=== PATIENT | female | born 1965 | race Caucasian/White ===

== ENCOUNTER → 2018-08-10 | Outpatient (CLI) | payer BC ==
[2018-08-10 18:12] LABS: Basophils % (A) 1 %; Eosinophils # (A) 0.1 k/uL (0-0.7); Eosinophils % (A) 2 %; HCT 43.5 % (34.0-46.0); HGB 13.4 gm/dL (11.4-16.0); Lymphocytes # (A) 1.9 k/uL (1.0-4.8); Lymphocytes % (A) 36 %; MCH 29.7 pg (25.0-35.0); MCHC 30.8 g/dL (31.0-37.0); MCV 96.4 fL (80.0-100.0); Monocytes # (A) 0.3 k/uL (0-1.0); Monocytes % (A) 6 %; Neutrophils % (A) 55 %; Platelet Count 348 k/uL (150-450); RBC 4.51 m/uL (3.80-5.40); RDW 12.9 % (11.5-15.5); WBC 5.4 k/uL (3.8-10.6)
[2018-08-10 18:26] LABS: ALT 28 U/L (9-52); AST 25 U/L (14-36); Albumin 4.3 g/dL (3.5-5.0); Alkaline Phosphatase 73 U/L (38-126); Anion Gap 9 mmol/L; Blood Urea Nitrogen 15 mg/dL (7-17); Calcium 9.6 mg/dL (8.4-10.2); Carbon Dioxide 27 mmol/L (22-30); Chloride 105 mmol/L (98-107); Glucose 86 mg/dL (74-99); Potassium 4.6 mmol/L (3.5-5.1); Sodium 141 mmol/L (137-145); Total Bilirubin 0.4 mg/dL (0.2-1.3); Total Protein 7.2 g/dL (6.3-8.2)
[2018-08-10 18:27] LABS: Total Eosinophil Count 108 #EOS/uL (150-300)
== END | disposition home or self-care (01) ==
LOC: LABWHC1 17:23
PROVIDERS: ATTEND Internal Medicine Clinical Cardiac Electrophysiology
DX: R00.2 Palpitations (principal); I10 Essential (primary) hypertension
CPT/HCPCS: 36415; 80053; 84443; 85008; 85025

== ENCOUNTER 2018-08-16 07:49 | Day surgery (SDC) | payer BC ==
[2018-08-15 12:12] VITALS: BMI 24.2
[~2018-08-16 07:49] MED LIST: SODIUM CHLORIDE 0.9% 1,000 ML IV SCH
[2018-08-16 08:10] VITALS: TEMP 99.2
[2018-08-16 09:49] VITALS: BP 168/98; PULSE 75; RESP 16
--- NOTE | 2018-08-16 17:52 | P.PCN ---
Preoperative Diagnosis: Diagnosis Recurrent dizzy spells weakness presyncope and palpitations Twelve-lead ECG shows sinus rhythm normal MD narrow QRS normal ST segments normal QT interval Baseline heart rate 80 beats a minute the supine position Tilt table test per protocol Baseline blood pressure 169/88 mmHg Baseline heart rate 89 beats a minute patient was tilted upright at an angle of 70 per protocol there was about 20- 30 mm drop in blood pressure to 137/94 mmHg, drop in systolic blood pressure associated with nausea and dizziness But this settled down and her blood pressure thereafter remained between 150 260 mmHg and even higher diastolics were also elevated she complained of nausea increasing symptoms and could not stand any further issues very dizzy Impression Hypertensive response noted No evidence for any significant orthostatic intolerance on current medications. She is currently on propranolol and there was no significant rise in her heart rate in the first 15 minutes of the tilt table test Blood pressure remained elevated she is currently on Florinef Suggest Reduced dose of Florinef to 0.5 mg by mouth daily Reassessment in a month regarding the need for Aldomet and the need for any Florinef at all based upon her blood pressure response This time she is presenting once again with hypertension/POTS
== END 2018-08-16 10:28 | disposition home or self-care (01) ==
LOC: CATHEP 07:49
PROVIDERS: ATTEND Internal Medicine Clinical Cardiac Electrophysiology
DX: I95.1 Orthostatic hypotension (principal); G90.9 Disorder of the autonomic nervous system, unspecified; I10 Essential (primary) hypertension; E78.5 Hyperlipidemia, unspecified; Z79.890 Hormone replacement therapy; Z79.52 Long term (current) use of systemic steroids; Z79.899 Other long term (current) drug therapy
CPT/HCPCS: 93660

== ENCOUNTER → 2018-11-29 | Outpatient (CLI) | payer BC ==
[2018-11-29 15:59] VITALS: BP 106/74; PULSE 79; TEMP 98.1; BMI 25.6
--- NOTE | 2018-11-29 16:49 | P.HPOB ---
History of Present Illness H&P Date: 11/29/18 Chief Complaint: The patient is here for her routine gynecologic exam and mammogram. This is a 53-year-old G2 PII within LMP of November 2016. The patient denies any vaginal bleeding for 2 years. She has had hot flashes since she was diagnosed with postural orthostatic tachycardia syndrome at age 39. Hot flashes remain about the same. She is otherwise without complaints. Review of Systems The patient has lost 15 pounds over the last year. She is done this with a healthy diet. She denies respiratory, cardiac, or G.I. problems. Past Medical History Past Medical History: Asthma, Thyroid Disorder Additional Past Medical History / Comment(s): celiac disease, seasonal allergies , IBS related to postural orthostatic tachycardia syndrome (POTS), kidney stones , migraines. 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 History of Any Multi-Drug Resistant Organisms: None Reported Past Surgical History: Section (x1), Orthopedic Surgery, Tonsillectomy Additional Past Surgical History / Comment(s): arthroscopic left knee, rectal abscess & hemorrhoids removed. Colonoscopy with upper endoscopy 2012. Past Anesthesia/Blood Transfusion Reactions: No Reported Reaction Past Psychological History: No Psychological Hx Reported Smoking Status: Never smoker Past Alcohol Use History: None Reported Past Drug Use History: None Reported Additional History: She has been since 1993 and is disabled. - Past Family History Father Family Medical History: Diabetes Mellitus, Deep Vein Thrombosis (DVT), Hypertension Additional Family Medical History / Comment(s): Paternal aunt had breast cancer. Mother Family Medical History: Dementia Medications and Allergies Home Medications Medication Instructions Recorded Confirmed Type ALPRAZolam [Xanax] 0.5 tab PO BID 08/15/18 11/29/18 History Albuterol Sulfate [Proair Hfa] 1 - 2 puff INHALATION Q6HR PRN 08/15/18 11/29/18 History Atorvastatin [Lipitor] 20 mg PO HS 08/15/18 11/29/18 History Butalb/Asprin/Caff 50-325-40Mg 1 - 2 cap PO Q4HR PRN 08/15/18 11/29/18 History [Fiorinal 50-325-40 MG] Diphenox-Atrop 2.5-0.025 mg 2 tab PO QID PRN 08/15/18 11/29/18 History [Lomotil] Ferrous Sulfate [Feosol] 325 mg PO DAILY 08/15/18 11/29/18 History Folic Acid 1 mg PO DAILY 08/15/18 11/29/18 History HYDROcodone/APAP 7.5-325MG [[place] 1 tab PO Q6HR PRN 08/15/18 11/29/18 History 7.5-325] Levothyroxine Sodium [Tirosint] 50 mcg PO HS 08/15/18 11/29/18 History Montelukast [Singulair] 10 mg PO DAILY 08/15/18 11/29/18 History Ondansetron [Zofran] 4 mg PO Q8HR PRN 08/15/18 11/29/18 History Polyethylene Glycol 3350 [Miralax] 17 gm PO BID 08/15/18 11/29/18 History Potassium Chloride [Klor-Con 20] 20 meq PO 1800 08/15/18 11/29/18 History Propranolol HCl [Inderal LA] 80 mg PO QAM 08/15/18 11/29/18 History Propranolol [Inderal] 20 mg PO DIRECTED PRN 08/15/18 11/29/18 History Zolpidem [Ambien] 10 mg PO HS PRN 08/15/18 11/29/18 History Methyldopa/Hydrochlorothiazide 1 each PO DAILY 11/29/18 11/29/18 History [Methyldopa-Hctz 250-15 mg Tab] Prochlorperazine [Compazine] 5 mg PO Q8HR 11/29/18 11/29/18 History Allergies Allergy/AdvReac Type Severity Reaction Status Date / Time gluten AdvReac Unknown Verified 11/29/18 15:48 Exam Vital Signs Temp Pulse BP 11/29/18 15:55 98.1 F 79 106/74 Intake and Output 11/29/18 11/29/18 11/29/18 06:59 14:59 22:59 Other: Weight 69.853 kg Height 5'5", weight 154 pounds, BMI 25.6. This is a well-developed well-nourished white female who is alert and oriented times 3 in no acute distress. HEENT: Within normal limits. NECK: Supple without mass or thyromegaly. CHEST AND LUNGS: Clear to auscultation. HEART: Regular rate and rhythm. BREASTS: Are without mass or discharge. AXILLARY EXAM: Negative for adenopathy. BACK: Negative for CVA tenderness. ABDOMEN: Soft, nontender, without palpable masses. PELVIC EXAM: Normal external genitalia. Cervix and vagina appear normal with minimal atrophy. There is no unusual discharge. There is no evidence of prolapse. The uterus is midposition, nongravid size and nontender. There are no palpable adnexal masses or tenderness. RECTAL EXAM: rectovaginal exam is negative for mass or tenderness and is negative for occult blood. EXTREMITIES: Nontender. IMPRESSION: 1. 53-year-old postmenopausal female with normal gynecologic exam. 2. Multiple medical problems. PLAN: 1. Pap smear was performed. 2. Self breast awareness was discussed with the patient. 3. Screening mammogram will be done today. 4. Osteoporosis prevention was discussed. I have stressed the importance of adequate calcium, vitamin D and regular exercise. Recommended amounts of calcium and vitamin D were also discussed. We will plan on doing bone density testing at age 56. 5. She will return in one year.
--- NOTE | 2018-12-03 10:14 | MM ---
Reason for exam: screening (asymptomatic). Last mammogram was performed 1 year and 2 months ago. History: Patient is postmenopausal and had first child at age 32. Family history of breast cancer in paternal aunt at age 75. Took hormonal contraceptives for 25 years beginning at age 24. MG 3D Screening Mammo W/Cad Bilateral CC and MLO view(s) were taken. Prior study comparison: September 14, 2017, bilateral MG screening mammo w CAD. July 27, 2016, left breast MG work up mamm w CAD LT. The breast tissue is heterogeneously dense. This may lower the sensitivity of mammography. No significant changes when compared with prior studies. ASSESSMENT: Benign, BI-RAD 2 RECOMMENDATION: Routine screening mammogram of both breasts in 1 year.
== END ==
LOC: WWCWWP 15:38
PROVIDERS: ATTEND Obstetrics & Gynecology
DX: Z12.31 Encounter for screening mammogram for malignant neoplasm of breast (principal)
CPT/HCPCS: 77063; 77067

== ENCOUNTER → 2019-10-11 | Outpatient (CLI) | payer BC ==
[2019-10-11 12:14] VITALS: BP 123/82; PULSE 63; RESP 16; TEMP 98.7
--- NOTE | 2019-10-11 13:51 | P.HPOB ---
History of Present Illness H&P Date: 10/11/19 Chief Complaint: The patient is here for her routine gynecologic exam. This is a 54-year-old with an LMP of November 2016. The patient denies any postmenopausal bleeding. She has been having worsening vasomotor symptoms at night which are very bothersome to her. She states they have gotten much worse since about February of this year. She has hot flashes and night sweats at night which can leave her and her pajamas "drenched". She has difficulty sleeping at night and typically only sleeps 2 or 3 hours per night. Hot flashes are usually not very bad during the day and can also feel cold during the day. She has also noticed significant worsening of her anxiety since February. She has lost weight during this time. Her doctors have made medication adjustments because of some of her symptoms without much improvement. She has been taken off of her thyroid medication and will be seeing a new muck miner. She has also noticed brittle hair. She has been put back on Zoloft for some of her symptoms and this has been increased to 100 mg per day. She has been taken off of Aldomet which she had previously taken for fluctuating blood pressures. Review of Systems She has lost about 27 pounds during the past year. Respiratory: She has occasional shortness of breath. Cardiac: She has occasional tachycardia which is related to her pots syndrome. GI she has had a decreased appetite and has noticed a metallic taste in her mouth and she attributes her weight loss to these problems. She had has been undergoing workup for GI problems including some difficulty swallowing. Past Medical History Past Medical History: Asthma, Thyroid Disorder Additional Past Medical History / Comment(s): celiac disease, seasonal allergies, IBS related to postural orthostatic tachycardia syndrome (POTS), kidney stones, migraines. History of hypothyroidism delayed return to hyperthyroidism. 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 History of Any Multi-Drug Resistant Organisms: None Reported Past Surgical History: Section, Orthopedic Surgery, Tonsillectomy Additional Past Surgical History / Comment(s): arthroscopic left knee, rectal abscess & hemorrhoids removed. Colonoscopy with upper endoscopy- last 2018. Past Anesthesia/Blood Transfusion Reactions: No Reported Reaction Past Psychological History: No Psychological Hx Reported Smoking Status: Never smoker Past Alcohol Use History: None Reported Past Drug Use History: None Reported Additional History: She has been since 1993 and is disabled. - Past Family History Father Family Medical History: Diabetes Mellitus, Deep Vein Thrombosis (DVT), Hypertension Additional Family Medical History / Comment(s): Paternal aunt had breast cancer. Mother Family Medical History: Dementia Medications and Allergies Home Medications Medication Instructions Recorded Confirmed Type ALPRAZolam [Xanax] 0.5 tab PO QID 08/15/18 10/11/19 History Albuterol Sulfate [Proair Hfa] 1 - 2 puff INHALATION Q6HR PRN 08/15/18 10/11/19 History Butalb/Asprin/Caff 50-325-40Mg 1 - 2 cap PO Q4HR PRN 08/15/18 10/11/19 History [Fiorinal 50-325-40 MG] Diphenox-Atrop 2.5-0.025 mg 2 tab PO QID PRN 08/15/18 10/11/19 History [Lomotil] Ferrous Sulfate [Feosol] 325 mg PO DAILY 08/15/18 10/11/19 History Folic Acid 1 mg PO DAILY 08/15/18 10/11/19 History HYDROcodone/APAP 7.5-325MG [[place] 1 tab PO Q6HR PRN 08/15/18 10/11/19 History 7.5-325] Montelukast [Singulair] 10 mg PO DAILY 08/15/18 10/11/19 History Ondansetron [Zofran] 4 mg PO Q8HR PRN 08/15/18 10/11/19 History Polyethylene Glycol 3350 [Miralax] 17 gm PO DAILY 08/15/18 10/11/19 History Propranolol HCl [Inderal LA] 80 mg PO QAM 08/15/18 10/11/19 History Propranolol [Inderal] 20 mg PO DIRECTED PRN 08/15/18 10/11/19 History Zolpidem [Ambien] 10 mg PO HS PRN 08/15/18 10/11/19 History Prochlorperazine [Compazine] 5 mg PO Q8HR 11/29/18 10/11/19 History Hyoscyamine Sulfate [Levsin-Sl] 0.125 mg SL DAILY PRN 10/11/19 10/11/19 History Mometasone Furoate [Nasonex Nasal 2 spr EA NOSTRIL DAILY 10/11/19 10/11/19 History [place]] Ondansetron [Zofran ODT] 4 mg PO Q12HR 10/11/19 10/11/19 History Allergies Allergy/AdvReac Type Severity Reaction Status Date / Time gluten AdvReac Unknown Verified 10/11/19 12:14 Exam Vital Signs Temp Pulse Resp BP Pulse Ox 10/11/19 12:08 98.7 F 63 16 123/82 100 Intake and Output 10/10/19 10/11/19 10/11/19 22:59 06:59 14:59 Other: Weight 57.606 kg Height 5 feet 5 inches, weight 127 pounds, BMI 21.1. This is a well-developed well-nourished white female who is alert and oriented times 3 in no acute distress. HEENT: Within normal limits. NECK: Supple without mass or thyromegaly. CHEST AND LUNGS: Clear to auscultation. HEART: Regular rate and rhythm. BREASTS: Are without mass or discharge. AXILLARY EXAM: Negative for adenopathy. BACK: Negative for CVA tenderness. ABDOMEN: Soft, nontender, without palpable masses. PELVIC EXAM: Normal external genitalia with minimal atrophy. Cervix and vagina appear normal with minimal atrophy. There is no unusual discharge. There is no evidence of prolapse. The uterus is midposition, nongravid size and nontender. There are no palpable adnexal masses or tenderness. RECTAL EXAM: Rectovaginal exam is negative for mass or tenderness and is negative for occult blood. EXTREMITIES: Nontender. IMPRESSION: 1. 54-year-old menopausal female with normal gynecologic exam. 2. Worsening vasomotor symptoms especially at night which include night sweats and resulting insomnia. This probably is related to her menopausal change, but can also be partially related to her other medical problems including thyroid disorder and POTS. Differential diagnosis will also include anxiety, medication side effect and hyperthyroidism. PLAN: 1. Pap smear was deferred since she had a normal one on 11/29/2018. 2. Self breast awareness was discussed with the patient. 3. Mammogram will be due in 2019. 4. We have had a long discussion regarding her symptoms as well as menopausal symptoms and possible treatments. We have discussed options such as conservative measures which would include drinking icewater when symptoms arise and dressing in layers. Other options discussed include hormone replacement therapy, nonhormonal medications and supplements. Nonhormonal medications such as clonidine and SSRI medications were discussed. She is already taking SSRI medications in the form of Zoloft. She will keep in mind the option of clonidine if she is needed to be put on blood pressure medication. We have had a long discussion regarding hormone replacement therapy including the WHI study findings. We discussed possible increased risk for heart attack, stroke, breast cancer, and blood clots. After a long discussion, she would like to have a trial of continuous HRT. We will try to use the lowest effective dose for the shortest amount of time. She will also consult with her primary care physician and electrician third to make sure that they are not opposed to see such treatment in her situation. 5. Estradiol 0.5 mg by mouth daily and micronized progesterone 100 mg by mouth daily will be prescribed. The per prescription will be sent electronically to [facility] pharmacy in [place]. She understands she should she should not fill the prescription if her PCP and electrician third are opposed to this HRT usage. 6. She will return in one month for reevaluation and also call if she has any questions or problems. 7. She will also return in 1 year and as needed. 8. The ACOG FAQ (047) handout on menopausal years was given to the patient.
== END ==
LOC: WWCWWP 11:56
PROVIDERS: ATTEND Obstetrics & Gynecology
DX: Z53.9 Procedure and treatment not carried out, unspecified reason (principal)

== ENCOUNTER → 2019-11-01 | Outpatient (CLI) | payer BC ==
[2019-11-01 10:10] VITALS: BP 113/68; PULSE 67; RESP 16; TEMP 98.9
--- NOTE | 2019-11-01 10:31 | P.PN ---
Progress Note - Text Progress Note Date: 11/01/19 Chief Complaint: recheck on low-dose HRT for vasomotor symptoms HPI:This is a 54-year-old with an LMP of November 2016. The patient was started on low-dose HRT for worsening vasomotor symptoms at night which causes problems with inability to sleep. She states that her night sweats and hot flashes at night were severe and she would be "drenched"at times. After starting HRT she has noticed an improvement with the hot flashes and night sweats at night and is able to sleep much better. She still has sweats at night and thinks she would like to increase her HRT dose to see if this helps even more. She denies any side effects and denies any postmenopausal bleeding. ROS:she denies any side effects or problems. she has gained about 5 pounds over the past month. PE: Blood pressure:113/68, Height:5 feet 5 inches, Weight:132 pounds, Temperature:98.9, Pulse:67, pulse oximeter 100%. This is a well developed, well nourished, White female who is alert and orientedx3, in no acute distress. Impression: 1. 54-year-old menopausal female with slight improvement of vasomotor symptoms w ith low-dose HRT. 2. improvement in sleeping, but she still does have night some sweats Plan: 1. we will increase the Estrace dose to 1 mg daily from 0.5 mg daily. She will continue to take the micronized progesterone 100 mg daily. The electronic prescription will be sent to [facility] pharmacy in [place]. 2. she will call she has any problems including postmenopausal bleeding, side effects or signs of internal blood clots. 3. If she is doing well, she'll return in approximately 11 months for her annual well woman examination. We have discussed how we will plan on weaning down or off of HRT every year. Time spent with the patient: 15 minutes
== END ==
LOC: WWCWWP 09:59
PROVIDERS: ATTEND Obstetrics & Gynecology
DX: Z53.9 Procedure and treatment not carried out, unspecified reason (principal)

== ENCOUNTER → 2020-12-17 | Outpatient (CLI) | payer BC ==
[2020-12-17 15:27] VITALS: BP 94/66; PULSE 68; RESP 18; TEMP 98.5
--- NOTE | 2020-12-17 16:19 | P.HPOB ---
History of Present Illness H&P Date: 12/17/20 Chief Complaint: The patient is here for her routine gynecologic exam and ma mmogram. This is a 55-year-old with an LMP of 2017. The patient states she is doing well with low-dose HRT. She was taking this mostly for bad night sweats and this has improved. She would like to keep her HRT dose the same at this time. She denies any postmenopausal bleeding. Review of Systems She is gained about 17 pounds over the last year. This was after losing 27 pounds the prior year. She attributes though weight changes to her POTS syndrome and feels she is at a good weight at this time. She denies respiratory or cardiac problems. GI: She has been having issues with alternating constipation and diarrhea which she also attributes to her POTS syndrome. She sees Dr. Hart for this. Past Medical History Past Medical History: Asthma, Thyroid Disorder Additional Past Medical History / Comment(s): celiac disease, seasonal allergies, IBS related to postural orthostatic tachycardia syndrome (POTS), kidney stones, migraines. History of hypothyroidism delayed return to hyperthyroidism. 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 History of Any Multi-Drug Resistant Organisms: None Reported Past Surgical History: Section, Orthopedic Surgery, Tonsillectomy Additional Past Surgical History / Comment(s): arthroscopic left knee, rectal abscess & hemorrhoids removed. Colonoscopy with upper endoscopy- last 2018. Past Anesthesia/Blood Transfusion Reactions: No Reported Reaction Past Psychological History: No Psychological Hx Reported Smoking Status: Never smoker Past Alcohol Use History: None Reported Past Drug Use History: None Reported Additional History: She has been since 1993 and is disabled. - Past Family History Father Family Medical History: Diabetes Mellitus, Deep Vein Thrombosis (DVT), Hypertension Additional Family Medical History / Comment(s): Paternal aunt had breast cancer. Mother Family Medical History: Dementia Medications and Allergies Home Medications Medication Instructions Recorded Confirmed Type Albuterol Sulfate [Proair Hfa] 1 - 2 puff INHALATION Q6HR PRN 08/15/18 12/17/20 History Butalb/Asprin/Caff 50-325-40Mg 1 - 2 cap PO Q4HR PRN 08/15/18 12/17/20 History [Fiorinal 50-325-40 MG] Diphenox-Atrop 2.5-0.025 mg 2 tab PO QID PRN 08/15/18 12/17/20 History [Lomotil] Ferrous Sulfate [Feosol] 325 mg PO DAILY 08/15/18 12/17/20 History Folic Acid 1 mg PO DAILY 08/15/18 12/17/20 History HYDROcodone/APAP 7.5-325MG [[place] 1 tab PO Q6HR PRN 08/15/18 12/17/20 History 7.5-325] Montelukast [Singulair] 10 mg PO DAILY 08/15/18 12/17/20 History Ondansetron [Zofran] 4 mg PO Q8HR PRN 08/15/18 12/17/20 History Propranolol HCl [Inderal LA] 80 mg PO QAM 08/15/18 12/17/20 History Propranolol [Inderal] 20 mg PO DIRECTED PRN 08/15/18 12/17/20 History Zolpidem [Ambien] 10 mg PO HS PRN 08/15/18 12/17/20 History polyethylene glycoL 3350 [Miralax] 17 gm PO DAILY 08/15/18 12/17/20 History Prochlorperazine [Compazine] 5 mg PO Q8HR 11/29/18 12/17/20 History Mometasone Furoate [Nasonex Nasal 2 spr EA NOSTRIL DAILY 10/11/19 12/17/20 History [place]] Ondansetron [Zofran ODT] 4 mg PO Q12HR 10/11/19 12/17/20 History Progesterone, Micronized 100 mg PO DAILY #90 capsule 11/01/19 12/17/20 Rx [Progesterone] Dicyclomine [Bentyl] 20 mg PO QID 12/17/20 12/17/20 History clonazePAM [KlonoPIN] 0.5 mg PO BID 12/17/20 12/17/20 History estradioL [Estrace] 0.5 mg PO DAILY 12/17/20 12/17/20 History Allergies Allergy/AdvReac Type Severity Reaction Status Date / Time gluten AdvReac Unknown Verified 12/17/20 15:15 Exam Vital Signs Temp Pulse Resp BP Pulse Ox 12/17/20 15:22 98.5 F 68 18 94/66 100 Intake and Output 12/17/20 12/17/20 12/17/20 06:59 14:59 22:59 Other: Weight 65.317 kg Height 5 feet 6 inches, weight 144 pounds, BMI 23.2. This is a well-developed well-nourished white female who is alert and oriented times 3 in no acute distress. HEENT: Within normal limits. NECK: Supple without mass or thyromegaly. CHEST AND LUNGS: Clear to auscultation. HEART: Regular rate and rhythm. BREASTS: Are without mass or discharge. AXILLARY EXAM: Negative for adenopathy. BACK: Negative for CVA tenderness. ABDOMEN: Soft, nontender, without palpable masses. PELVIC EXAM: Normal external genitalia with mild atrophy. Cervix and vagina appear normal mild atrophy. There is no unusual discharge. There is no evidence of prolapse. The uterus is midposition, nongravid size and nontender. There are no palpable adnexal masses or tenderness. RECTAL EXAM: Rectovaginal exam is negative for mass or tenderness and is negative for occult blood. EXTREMITIES: Nontender. IMPRESSION: 1. 55-year-old menopausal female with normal gynecologic exam doing well on low-dose HRT. PLAN: 1. Pap smear cotest was performed. 2. Self breast awareness was discussed with the patient. 3. Screening mammogram will be done today. 4. We will continue low-dose HRT. We have discussed trying to wean off of HRT. She would like to not change anything at this time since she has been doing well with this. We will consider trying to wean off next year. The electronic prescription for estradiol 0.5 mg daily and micronized progesterone 100 mg daily will be sent to [facility] pharmacy in [place]. 5. Osteoporosis prevention was discussed. I have stressed the importance of adequate calcium, vitamin D and regular exercise. Recommended amounts of calcium and vitamin D were also discussed. 6. She was advised to return in one year for her annual well woman exam.
--- NOTE | 2020-12-20 13:20 | MM ---
Reason for exam: screening (asymptomatic). Last mammogram was performed 2 years and 1 month ago. History: Patient is postmenopausal and had first child at age 32. Family history of breast cancer in paternal aunt at age 75. Took hormonal contraceptives for 25 years beginning at age 24. Physical Findings: A clinical breast exam by your physician is recommended on an annual basis and results should be correlated with mammographic findings. MG 3D Screening Mammo W/Cad Bilateral CC and MLO view(s) were taken. Prior study comparison: November 29, 2018, bilateral MG 3d screening mammo w/cad. September 14, 2017, bilateral MG screening mammo w CAD. The breast tissue is heterogeneously dense. This may lower the sensitivity of mammography. No significant changes when compared with prior studies. ASSESSMENT: Benign, BI-RAD 2 RECOMMENDATION: Routine screening mammogram of both breasts in 1 year.
== END | disposition home or self-care (01) ==
LOC: WWCWWP 15:07
PROVIDERS: ATTEND Obstetrics & Gynecology
DX: Z12.31 Encounter for screening mammogram for malignant neoplasm of breast (principal)
CPT/HCPCS: 77063; 77067

== ENCOUNTER → 2021-08-26 | Outpatient (CLI) | payer BC ==
[2021-08-26 13:43] VITALS: BP 99/76; PULSE 70; RESP 12; TEMP 97.9
--- NOTE | 2021-08-26 14:35 | P.PN ---
Progress Note - Text Progress Note Date: 08/26/21 Chief Complaint: Light vaginal bleeding for 5 days. HPI: This is a 56-year-old with an LMP of 2017. The patient has been on combination HRT since 2018. She has been taking estradiol 1 mg daily and micronized progesterone 100 mg daily. She did not try weaning from these doses since I saw her in December. The bleeding started 5 days ago and was less than a period. She has had very slight cramping as well. The bleeding has gradually gotten rater associate and is minimal now. She denies any trauma or painful intercourse. She was last sexually active 1-2 weeks ago. She denies any supplements for menopausal symptoms. She currently is using the HRT for night sweats which were problematic before HRT. She denies missing any HRT pills. She states that the progesterone pills she has been taking recently have seemed softer than in the past. ROS: She denies respiratory, cardiac, or GI problems. She denies any urinary symptoms. PE: Blood pressure: 99/67, Height: 5 feet 5 inches, Weight: 141 pounds, Temperature: 97.9, Pulse: 70. This is a well developed, well nourished, why to female who is alert and orientedx3, in no acute distress. Abdomen: Soft, nontender, no palpable masses. Pelvic exam: Normal external genitalia. Cervix and vagina revealed mild atrophy without lesions. There is a scant amount of blood in the back of the vagina. There is no active bleeding. There is no cervical motion tenderness. The cervix does not appear inflamed. The uterus is mid positioned, nongravid size, and nontender. There are no palpable adnexal masses or tenderness. Impression: 1. 56-year-old menopausal female who is on continuous HRT with 5 days of light vaginal bleeding. Plan: 1. The patient will be scheduled for a pelvic ultrasound to check the endometrial thickness. This has been scheduled for 09/02/2021 and 1 PM. If there is endometrial thickening, we will plan on doing some type of sampling of the endometrium, either endometrial biopsy or referral for D&C and H/S. 2. I have recommended that she immediately try to wean down on the estradiol by going to a half milligram per day. She will continue to take the micronized progesterone. She is hesitant to change her HRT at this time, but I have explained to her that this may decrease the chances of additional postmenopausal bleeding. I have also explained to her that they may be situations where she will be asked to stop the HRT altogether such as the situation where we find cancerous or precancerous changes. Time spent with the patient: 25 minutes
== END ==
LOC: WWCWWP 13:22
PROVIDERS: ATTEND Obstetrics & Gynecology
DX: N93.9 Abnormal uterine and vaginal bleeding, unspecified (principal); Z91.018 Allergy to other foods

== ENCOUNTER → 2021-09-02 | Outpatient (CLI) | payer BC ==
--- NOTE | 2021-09-02 15:56 | US ---
EXAMINATION TYPE: US pelvic complete DATE OF EXAM: 09/02/2021 COMPARISON: NONE CLINICAL HISTORY: 56-year-old female PMB N95.0. Post Menopausal bleeding, TECHNIQUE: Transabdominal sonographic images of the pelvis were acquired. Transvaginal sonographic i mages were medically necessary to better assess the following anatomy: Ovaries and retroverted Uterus Date of LMP: 4 years ago FINDINGS: EXAM MEASUREMENTS: Uterus: 6.1 x 5.4 x 3.1 cm Endometrial Stripe: 0.5 cm Right Ovary: 1.8 x 1.4 x 0.9 cm Left Ovary: 2.2 x 0.8 x 1.4 cm 1. Uterus: Retroverted 2. Endometrium: wnl 3. Right Ovary: Unremarkable 4. Left Ovary: Unremarkable 5. Bilateral Adnexa: no mass or fluid collections seen 6. Posterior cul-de-sac: Trace cul-de-sac free fluid. 6 mm cervical nabothian cyst noted. IMPRESSION: 1. Retroverted uterus. 2. Borderline thickness of the endometrial stripe at 5 mm for a female with postmenopausal bleeding. No discrete mass is seen. Continued follow-up recommended to ensure stability or decreasing thickness . 3. Trace cul-de-sac free fluid.
--- NOTE | 2021-09-03 14:21 | P.PN ---
Progress Note - Text Progress Note Date: 09/03/21 OUTPATIENT FOLLOW-UP NOTE TEST(S)/RESULTS: Pelvic ultrasound done on 09/02/2021 shows an endometrial thickness of 5 mm. The ultrasound was otherwise unremarkable. No uterine fibroids were noted. METHOD OF NOTIFICATION: Patient was notified by phone. PATIENT COMMENTS: The patient has decreased her estradiol dose to 0.5 mg daily by taking half of her 1 mg tablet daily. She states she is no longer having any vaginal bleeding. DIAGNOSIS: Small postmenopausal bleeding on HRT with endometrial thickness of 5 mm DISCUSSION: I feel reassured that the initial thickness is not significantly thickened. I have recommended that she continue taking the estradiol dose of 0.5 mg daily. She will continue taking progesterone 100 mg daily. The electronic prescription for the new estradiol dose will be sent to [facility] pharmacy in [place]. She was instructed to call or make an appointment if she has r ecurrent vaginal bleeding, or if her menopausal symptoms are becoming very bad. If she has recurrent bleeding, we will plan on sampling of the endometrial tissue. PLAN: As above. She will return for her well woman examination in December 2021 or as needed.
== END | disposition home or self-care (01) ==
LOC: RADUSWWP 12:51
PROVIDERS: ATTEND Obstetrics & Gynecology
DX: N85.4 Malposition of uterus (principal)
CPT/HCPCS: 76830; 76856

== ENCOUNTER → 2022-03-24 | Outpatient (CLI) | payer BC ==
[2022-03-24 14:19] VITALS: BP 107/71; PULSE 59; RESP 17; TEMP 98.2
--- NOTE | 2022-03-24 15:01 | P.HPOB ---
History of Present Illness H&P Date: 03/24/22 Chief Complaint: The patient is here for her routine gynecologic exam and ma mmogram. This is a 57-year-old with an LMP of 2016. The patient is doing well with the lower dose of HRT which includes estradiol 0.5 mg daily with 100 mg of micronized progesterone daily. She denies any postmenopausal bleeding on this dose. The HRT dose was changed after she had a small amount of postmenopausal bleeding in August 2021. Ultrasound showed an endometrial thickness of 5 mm at that time. Review of Systems Weight has been stable. She denies respiratory or cardiac problems. GI: Intermittent constipation and diarrhea consistent with her IBS. Past Medical History Past Medical History: Asthma, Thyroid Disorder Additional Past Medical History / Comment(s): celiac disease, seasonal allergies, IBS related to postural orthostatic tachycardia syndrome (POTS), kidney stones, migraines. History of hypothyroidism delayed return to hyperthyroidism. 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 History of Any Multi-Drug Resistant Organisms: None Reported Past Surgical History: Section, Orthopedic Surgery, Tonsillectomy Additional Past Surgical History / Comment(s): arthroscopic left knee, rectal abscess & hemorrhoids removed. Colonoscopy with upper endoscopy- last 2018(next after 5y). Past Anesthesia/Blood Transfusion Reactions: No Reported Reaction Past Psychological History: No Psychological Hx Reported Smoking Status: Never smoker Past Alcohol Use History: Rare (3 per year) Past Drug Use History: None Reported Additional History: She has been since 1993 and is disabled. - Past Family History Father Family Medical History: Diabetes Mellitus, Deep Vein Thrombosis (DVT), Hypertension Additional Family Medical History / Comment(s): Paternal aunt had breast cancer. Mother Family Medical History: Dementia Medications and Allergies Home Medications Medication Instructions Recorded Confirmed Type Albuterol Sulfate [Proair Hfa] 1 - 2 puff INHALATION Q6HR PRN 08/15/18 03/24/22 History Butalb/Asprin/Caff 50-325-40Mg 1 - 2 cap PO Q4HR PRN 08/15/18 03/24/22 History [Fiorinal 50-325-40 MG] Diphenox-Atrop 2.5-0.025 mg 2 tab PO QID PRN 08/15/18 03/24/22 History [Lomotil] Folic Acid 1 mg PO DAILY 08/15/18 03/24/22 History HYDROcodone/APAP 7.5-325MG [[place] 1 tab PO Q6HR PRN 08/15/18 03/24/22 History 7.5-325] Montelukast [Singulair] 10 mg PO DAILY 08/15/18 03/24/22 History Ondansetron [Zofran] 4 mg PO Q8HR PRN 08/15/18 03/24/22 History Propranolol HCl [Inderal LA] 80 mg PO QAM 08/15/18 03/24/22 History Propranolol [Inderal] 20 mg PO DIRECTED PRN 08/15/18 03/24/22 History Zolpidem [Ambien] 10 mg PO HS 08/15/18 03/24/22 History polyethylene glycoL 3350 [Miralax] 17 gm PO DAILY 08/15/18 03/24/22 History Prochlorperazine [Compazine] 5 mg PO Q8HR 11/29/18 03/24/22 History Mometasone Furoate [Nasonex Nasal 2 spr EA NOSTRIL DAILY 10/11/19 03/24/22 History [place]] Dicyclomine [Bentyl] 20 mg PO QID 12/17/20 03/24/22 History Progesterone, Micronized 100 mg PO DAILY #90 capsule 12/17/20 03/24/22 Rx [Progesterone] clonazePAM [KlonoPIN] 0.5 mg PO BID 12/17/20 03/24/22 History Atorvastatin Calcium [Lipitor] 20 mg PO DAILY 08/26/21 03/24/22 History Sertraline HCl [Zoloft] 100 mg PO DAILY 08/26/21 03/24/22 History estradioL [Estrace] 0.5 mg PO DAILY #90 tablet 09/03/21 03/24/22 Rx traZODone HCL [TraZODone HCl] 50 mg PO DAILY 03/24/22 03/24/22 History Allergies Allergy/AdvReac Type Severity Reaction Status Date / Time gluten AdvReac Unknown Verified 03/24/22 14:12 Exam Vital Signs Temp Pulse Resp BP Pulse Ox 03/24/22 14:17 98.2 F 59 L 17 107/71 98 Intake and Output 03/23/22 03/24/22 03/24/22 22:59 06:59 14:59 Other: Weight 65.771 kg Height 5 feet 5 inches, weight 145 pounds, BMI 24.1. This is a well-developed well-nourished white female who is alert and oriented times 3 in no acute distress. HEENT: Within normal limits. NECK: Supple without mass or thyromegaly. CHEST AND LUNGS: Clear to auscultation. HEART: Regular rate and rhythm. BREASTS: Are without mass or discharge. AXILLARY EXAM: Negative for adenopathy. BACK: Negative for CVA tenderness. ABDOMEN: Soft, nontender, without palpable masses. PELVIC EXAM: Normal external genitalia with minimal atrophy. Cervix and vagina appear normal and minimal atrophy. There is no unusual discharge. There is no evidence of prolapse. The uterus is midposition, nongravid size and nontender. There are no palpable adnexal masses or tenderness. RECTAL EXAM: Rectovaginal exam is negative for mass or tenderness and is negative for occult blood. EXTREMITIES: Nontender. IMPRESSION: 1. 57-year-old menopausal female doing well on low-dose HRT. PLAN: 1. Pap smear was deferred since she had a negative Pap smear cotest on 12/17/2020. 2. Self breast awareness was discussed with the patient. We have also discussed symptoms associated with inflammatory breast cancer. 3. Screening mammogram will be done today. 4. Continue HRT consisting of estradiol 0.5 mg daily and micronized progesterone 100 mg daily. The electronic prescription will be sent to [facility] pharmacy in [place]. I have recommended that she try to wean off of HRT by decreasing the estrogen amount by taking half of the estradiol tablet daily. If she is having significant menopausal symptoms, she will go back onto the half milligram daily. 5. Osteoporosis prevention was discussed. I have stressed the importance of adequate calcium, vitamin D and regular exercise. Recommended amounts of calcium and vitamin D were also discussed. 6. She has completed her Covid vaccination series and did receive a booster. 7. She was advised to return in one year for her annual well woman exam.
--- NOTE | 2022-03-25 13:38 | MM ---
Reason for exam: screening (asymptomatic). Last mammogram was performed 1 year and 3 months ago. History: Patient is postmenopausal and had first child at age 32. Family history of breast cancer in paternal aunt at age 75. Took hormonal contraceptives for 25 years beginning at age 24. Took estrogen for 2 years. Took progesterone for 2 years. Physical Findings: A clinical breast exam by your physician is recommended on an annual basis and results should be correlated with mammographic findings. MG 3D Screening Mammo W/Cad Bilateral CC and MLO view(s) were taken. Prior study comparison: December 17, 2020, bilateral MG 3d screening mammo w/cad. November 29, 2018, bilateral MG 3d screening mammo w/cad. The breast tissue is heterogeneously dense. This may lower the sensitivity of mammography. There is no discrete abnormality. No significant changes when compared with prior studies. ASSESSMENT: Negative, BI-RAD 1 RECOMMENDATION: Routine screening mammogram of both breasts in 1 year.
== END ==
LOC: WWCWWP 14:04
PROVIDERS: ATTEND Obstetrics & Gynecology
DX: Z01.419 Encounter for gynecological examination (general) (routine) without abnormal findings (principal); Z12.31 Encounter for screening mammogram for malignant neoplasm of breast; Z78.0 Asymptomatic menopausal state; Z79.890 Hormone replacement therapy; J45.909 Unspecified asthma, uncomplicated; G43.909 Migraine, unspecified, not intractable, without status migrainosus; Z79.51 Long term (current) use of inhaled steroids; Z91.018 Allergy to other foods
CPT/HCPCS: 77063; 77067

== ENCOUNTER → 2023-03-30 | Outpatient (CLI) | payer BC ==
[2023-03-30 14:06] VITALS: BP 104/71; PULSE 65; RESP 16; TEMP 98.1
--- NOTE | 2023-03-30 14:45 | P.HPOB ---
History of Present Illness H&P Date: 03/30/23 Chief Complaint: The patient is here for her routine gynecologic exam and ma mmogram. This is a 58-year-old with an LMP of 2017. The patient states she is doing well with HRT in the form of estradiol 0.5 mg daily with 100 and milligrams of micronized progesterone daily. She denies any postmenopausal bleeding. She tried weaning by going to a half a tablet of estradiol daily and then to a half a tablet every other day. She states the night sweats and hot flashes got very bad again so she went back to estradiol 0.5 mg daily. Review of Systems The patient has gained 5 pounds over the last year. She denies respiratory, cardiac, or G.I. problems. Occasional symptoms from her POTS. Past Medical History Past Medical History: Asthma, Thyroid Disorder Additional Past Medical History / Comment(s): celiac disease, seasonal allergies, IBS related to postural orthostatic tachycardia syndrome (POTS), kidney stones, migraines. History of hypothyroidism delayed return to yperthyroidism. 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 History of Any Multi-Drug Resistant Organisms: None Reported Past Surgical History: Section, Orthopedic Surgery, Tonsillectomy Additional Past Surgical History / Comment(s): arthroscopic left knee, rectal abscess & hemorrhoids removed. Colonoscopy with upper endoscopy- last 2018(next after 5y). Past Anesthesia/Blood Transfusion Reactions: No Reported Reaction Past Psychological History: No Psychological Hx Reported Smoking Status: Never smoker Past Alcohol Use History: Rare (5 per year) Past Drug Use History: None Reported Additional History: She has been since 1993 and is disabled. - Past Family History Father Family Medical History: Diabetes Mellitus, Deep Vein Thrombosis (DVT), Hypertension Additional Family Medical History / Comment(s): Paternal aunt had breast cancer. Mother Family Medical History: Dementia Medications and Allergies Home Medications Medication Instructions Recorded Confirmed Type Albuterol Sulfate [Proair Hfa] 1 - 2 puff INHALATION Q6HR PRN 08/15/18 03/30/23 History Butalb/Asprin/Caff 50-325-40Mg 1 - 2 cap PO Q4HR PRN 08/15/18 03/30/23 History [Fiorinal 50-325-40 MG] Diphenox-Atrop 2.5-0.025 mg 2 tab PO QID PRN 08/15/18 03/30/23 History [Lomotil] Folic Acid 1 mg PO DAILY 08/15/18 03/30/23 History HYDROcodone/APAP 7.5-325MG [[place] 1 tab PO Q6HR PRN 08/15/18 03/30/23 History 7.5-325] Montelukast [Singulair] 10 mg PO DAILY 08/15/18 03/30/23 History Ondansetron [Zofran] 4 mg PO Q8HR PRN 08/15/18 03/30/23 History Propranolol HCl [Inderal LA] 80 mg PO QAM 08/15/18 03/30/23 History Propranolol [Inderal] 20 mg PO DIRECTED PRN 08/15/18 03/30/23 History Zolpidem [Ambien] 10 mg PO HS 08/15/18 03/30/23 History polyethylene glycoL 3350 [Miralax] 17 gm PO DAILY 08/15/18 03/30/23 History Prochlorperazine [Compazine] 5 mg PO Q8HR 11/29/18 03/30/23 History Mometasone Furoate [Nasonex Nasal 2 spr EA NOSTRIL DAILY 10/11/19 03/30/23 History [place]] Dicyclomine [Bentyl] 20 mg PO QID 12/17/20 03/30/23 History clonazePAM [KlonoPIN] 0.5 mg PO BID 12/17/20 03/30/23 History Atorvastatin Calcium [Lipitor] 20 mg PO DAILY 08/26/21 03/30/23 History Sertraline HCl [Zoloft] 100 mg PO DAILY 08/26/21 03/30/23 History Progesterone, Micronized 100 mg PO DAILY #90 capsule 03/24/22 03/30/23 Rx [Progesterone] estradioL [Estrace] 0.5 mg PO DAILY #90 tablet 03/24/22 03/30/23 Rx traZODone HCL [TraZODone HCl] 50 mg PO DAILY 03/24/22 03/30/23 History Allergies Allergy/AdvReac Type Severity Reaction Status Date / Time gluten AdvReac Unknown Verified 03/30/23 14:00 Exam Vital Signs Temp Pulse Resp BP Pulse Ox 03/30/23 14:01 98.1 F 65 16 104/71 100 Intake and Output 03/29/23 03/30/23 03/30/23 22:59 06:59 14:59 Other: Weight 68.039 kg Height 5 feet 4 inches, weight 150 pounds, BMI 25.7. This is a well-developed well-nourished white female who is alert and oriented times 3 in no acute distress. HEENT: Within normal limits. NECK: Supple without mass or thyromegaly. CHEST AND LUNGS: Clear to auscultation. HEART: Regular rate and rhythm. BREASTS: Are without mass or discharge. AXILLARY EXAM: Negative for adenopathy. BACK: Negative for CVA tenderness. ABDOMEN: Soft, nontender, without palpable masses. PELVIC EXAM: Normal external genitalia with minimal atrophy. Cervix and vagina appear normal with mild atrophy. There is no unusual discharge. There is no evidence of prolapse. The uterus is midposition, nongravid size and nontender. There are no palpable adnexal masses or tenderness. RECTAL EXAM: Rectovaginal exam is negative for mass or tenderness and is negative for occult blood. EXTREMITIES: Nontender. IMPRESSION: 1. 58-year-old menopausal female doing well on low-dose HRT, with normal gynecologic exam. 2. History of small uterine fibroids in the past which are asymptomatic and not palpable on exam today. PLAN: 1. Pap smear was deferred since she had a negative Pap smear cotest on 12/17/2020. 2. Self breast awareness was discussed with the patient. We have also discussed symptoms associated with inflammatory breast cancer. 3. Screening mammogram will be done today. 4. Osteoporosis prevention was discussed. I have stressed the importance of adequate calcium, vitamin D and regular exercise. Recommended amounts of calcium and vitamin D were also discussed. 5. She will continue on her current HRT regimen. At some point during the upcoming year I have recommended she again tried to wean down from the estrogen. She can start by taking a half of a tablet one day per week while taking a full tablet on the other days. If she is doing well she can gradually increase the number of days she is taking only a half a tablet. Electronic prescriptions will be sent to [facility] pharmacy in [place] for the HRT. 6. She was advised to return in one year for her annual well woman exam.
--- NOTE | 2023-03-31 08:48 | MM ---
Reason for Exam: Screening (asymptomatic). Last screening mammogram was performed 12 month(s) ago. Patient History: Menarche at age 14. First Full-Term at age 32. Late child-bearing (after 31). Postmenopausal. Patient used Estrogen for 2 years. Patient used Progesterone for 2 years. Hormonal Contraceptives for 25 years from age 24 until age 51. Paternal aunt had breast cancer, age 75. Risk Values: Joelle 5 year model risk: 1.8%. NCI Lifetime model risk: 10.7%. Prior Study Comparison: 11/29/2018 Bilateral Screening Mammogram, [facility]. 12/17/2020 Bilateral Screening Mammogram, [facility]. 03/24/2022 Bilateral Screening Mammogram, [facility]. Tissue Density: The breast tissue is heterogeneously dense. This may lower the sensitivity of mammography. Findings: Analyzed By CAD. There is no suspicious group of microcalcifications or new suspicious mass in either breast. Overall Assessment: Negative, BI-RAD 1 Management: Screening Mammogram of both breasts in 1 year. A clinical breast exam by your physician is recommended on an annual basis and results should be correlated with mammographic findings. Electronically signed and approved by: Jere Steele D.O.
== END ==
LOC: WWCWWP 13:45
PROVIDERS: ATTEND Obstetrics & Gynecology
DX: Z12.31 Encounter for screening mammogram for malignant neoplasm of breast (principal); Z01.419 Encounter for gynecological examination (general) (routine) without abnormal findings; J45.909 Unspecified asthma, uncomplicated; G43.909 Migraine, unspecified, not intractable, without status migrainosus; E03.9 Hypothyroidism, unspecified; Z91.018 Allergy to other foods; Z79.51 Long term (current) use of inhaled steroids
CPT/HCPCS: 77063; 77067

== ENCOUNTER → 2024-11-01 | Outpatient (CLI) | payer BC ==
[2024-11-01 09:11] VITALS: RESP 17; TEMP 98.1
[2024-11-01 09:50] VITALS: BP 111/77; PULSE 89
--- NOTE | 2024-11-01 10:06 | P.PCN ---
Date of Procedure: 11/01/24 Preoperative Diagnosis: Postmenopausal bleeding Postoperative Diagnosis: Postmenopausal bleeding Procedure(s) Performed: Endometrial biopsy Anesthesia: none Surgeon: Clifford Connelly Estimated Blood Loss (ml): 1 Pathology: other (Endometrial tissue) Condition: stable Disposition: same day Indications for Procedure: This was a 59-year-old menopausal female who has been on HRT for approximately 5 years who developed postmenopausal bleeding from 10/26/2024 to 10/30/2024. The initial 2 days started with period like bleeding without cramping. After the first 2 days it became much manager behavior and stopped on 10/30/2024. She denies missing any of the HRT or making any changes with her HRT. She is currently taking estradiol 0.5 mg daily and micronized progesterone 100 mg daily. She states the bleeding was not associated with sexual activity. Operative Findings: The uterus cavity measured 7.5 cm. The uterus was midposition and nongravid in size. There are no palpable adnexal masses or tenderness. A small amount of tissue was obtained. Description of Procedure: The endometrial biopsy procedure was described to the patient. We have also discussed possible risks and complications including bleeding, infection, uterine perforation, and damage to surrounding structures. All of her questions were answered. We have discussed the importance of sampling the tissue because of the postmenopausal bleeding. We have discussed various possible results from the testing including dyssynchronous lining, proliferative benign tissue, endometrial hyperplasia without atypia, endometrial hyperplasia with atypia as well as cancerous cells. Preprocedure vitals: Blood pressure 113/71, height 5 feet 5 inches, weight 163 pounds, BMI 27.1, temperature 98.1, pulse 69 and pulse oximeter 100%. The patient was placed in the lithotomy position and bimanual examination was performed. A speculum was inserted into the vagina and the cervix and vagina were prepped with Betadine solution. The anterior lip of the cervix was grasped with an Allis clamp. A small cervical dilator was used to probe the opening and direction of the cervical canal. This was inserted without difficulty. A 3 mm endometrial biopsy instrument was inserted through the cervix to the fundus without difficulty. The uterus measures 7.5 cm. Negative pressure was applied and a back and forth rotating motion was used. A small amount of tissue was obtained. The procedure was repeated 1 more time and a small amount of tissue was again obtained. The patient tolerated the procedure well. The instruments were removed. The estimated blood loss was 1 mL. There were no complications. Postprocedure vitals: Blood pressure 111/77, pulse 89, pulse oximeter 96%. The patient was given discharge instructions. She was instructed to call if she has heavy bleeding, unusual pain, or problems. Discussion: We have discussed how if the findings are precancerous or cancerous, hysterectomy may be indicated. If benign, we may need to change her HRT doses and this may be decreasing the estrogen or increase in the progesterone amounts. She understands that we will probably be working toward getting her off of HRT.
== END ==
LOC: WWCWWP 08:52
PROVIDERS: ATTEND Obstetrics & Gynecology
DX: N95.0 Postmenopausal bleeding (principal); Z91.018 Allergy to other foods

== ENCOUNTER → 2025-04-24 | Outpatient (CLI) | payer BC ==
[2025-04-24 15:12] VITALS: BP 109/73; PULSE 78; RESP 16; TEMP 98.5
--- NOTE | 2025-04-24 16:38 | P.HPOB ---
History of Present Illness H&P Date: 04/24/25 Chief Complaint: The patient is here for her routine gynecologic exam and ma mmogram. This is a 60-year-old G2, P2 with an LMP of 2017. The patient states she has been doing well on low-dose HRT. She decreased her estradiol dose from 0.5 mg to 0.25 mg daily by taking a half of a tablet daily. She states she has only had 1 episode of pink spot when wiping. She is otherwise without gynecologic complaints and would like to continue to try to wean down on her HRT. She is complaining of significant weight gain over the past year and does not know why. She states she does eat very healthy and has not started any new medications. Review of Systems The patient has gained 28 pounds over the last year. She does not know why she has gained so much weight. She does believe some of it is water retention. She denies respiratory, cardiac, or G.I. problems. Past Medical History Past Medical History: Asthma, Thyroid Disorder Additional Past Medical History / Comment(s): celiac disease, seasonal allergies, IBS related to postural orthostatic tachycardia syndrome (POTS), kidney stones, migraines. History of hypothyroidism delayed return to hyperthyroidism. 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 History of Any Multi-Drug Resistant Organisms: None Reported Past Surgical History: Section, Orthopedic Surgery, Tonsillectomy Additional Past Surgical History / Comment(s): arthroscopic left knee, rectal abscess & hemorrhoids removed. Colonoscopy with upper endoscopy- last 2018(next after 5y). Past Anesthesia/Blood Transfusion Reactions: No Reported Reaction Past Psychological History: No Psychological Hx Reported Smoking Status: Never smoker Past Alcohol Use History: Occasional (2-3 drinks per month.) Past Drug Use History: None Reported Additional History: She has been since 1993 and does not work outside of the home. - Past Family History Father Family Medical History: Diabetes Mellitus, Deep Vein Thrombosis (DVT), Hypertension Additional Family Medical History / Comment(s): Paternal aunt had breast cancer. Mother Family Medical History: Dementia Medications and Allergies Home Medications Medication Instructions Recorded Confirmed Type Albuterol Sulfate [Proair Hfa] 1 - 2 puff INHALATION Q6HR PRN 08/15/18 04/24/25 History Butalb/Asprin/Caff 50-325-40Mg 1 - 2 cap PO Q4HR PRN 10/01/18 06/10/25 History [Fiorinal 50-325-40 MG] Diphenox-Atrop 2.5-0.025 mg 2 tab PO QID PRN 08/15/18 04/24/25 History [Lomotil] Folic Acid 1 mg PO DAILY 08/15/18 04/24/25 History HYDROcodone/APAP 7.5-325MG [[place] 1 tab PO Q6HR PRN 08/15/18 04/24/25 History 7.5-325] Montelukast [Singulair] 10 mg PO DAILY 08/15/18 04/24/25 History Ondansetron [Zofran] 4 mg PO Q8HR PRN 08/15/18 04/24/25 History Propranolol HCl [Inderal LA] 80 mg PO QAM 08/15/18 04/24/25 History Propranolol [Inderal] 20 mg PO DIRECTED PRN 08/15/18 04/24/25 History polyethylene glycoL 3350 [Miralax] 17 gm PO DAILY 08/15/18 04/24/25 History Prochlorperazine [Compazine] 5 mg PO Q8HR 11/29/18 04/24/25 History Mometasone Furoate [Nasonex Nasal 2 spr EA NOSTRIL DAILY 10/11/19 04/24/25 History [place]] Dicyclomine [Bentyl] 20 mg PO QID 12/17/20 04/24/25 History Atorvastatin Calcium [Lipitor] 20 mg PO DAILY 08/26/21 04/24/25 History Progesterone, Micronized 100 mg PO DAILY #90 capsule 04/11/24 04/24/25 Rx [Progesterone] estradioL [Estrace] 0.5 mg PO DAILY #90 tablet 04/11/24 04/24/25 Rx Allergies Allergy/AdvReac Type Severity Reaction Status Date / Time gluten AdvReac Unknown Verified 04/24/25 15:04 Exam Vital Signs Temp Pulse Resp BP Pulse Ox 04/24/25 15:07 98.5 F 78 16 109/73 100 Intake and Output 04/24/25 04/24/25 04/24/25 06:59 14:59 22:59 Other: Weight 79.832 kg Height 5 feet 4 inches, weight 176 pounds, BMI 30.2. This is a well-developed well-nourished white female who is alert and oriented times 3 in no acute distress. HEENT: Within normal limits. NECK: Supple without mass or thyromegaly. CHEST AND LUNGS: Clear to auscultation. HEART: Regular rate and rhythm. BREASTS: Are without mass or discharge. AXILLARY EXAM: Negative for adenopathy. BACK: Negative for CVA tenderness. ABDOMEN: Soft, nontender, without palpable masses. PELVIC EXAM: Normal external genitalia with mild atrophy. Cervix and vagina appear normal with mild atrophy. There is no unusual discharge. There is no evidence of prolapse. The uterus is midposition, nongravid size and nontender. There are no palpable adnexal masses or tenderness. RECTAL EXAM: Rectovaginal exam is negative for mass or tenderness and is negative for occult blood. EXTREMITIES: Nontender. There is 1+ lower extremity edema. IMPRESSION: 1. 60-year-old menopausal female on low-dose HRT and is gradually weaning from this. 2. Significant weight gain over the past year with unknown cause. PLAN: 1. Pap smear cotest was performed. 2. Right breast awareness 3. Screening mammogram was done today. 4. Osteoporosis prevention was discussed. I have stressed the importance of adequate calcium, vitamin D and regular exercise. Recommended amounts of calcium and vitamin D were also discussed. 5. She will be seeing her PCP in the near future. Have recommended that she discuss thyroid testing since she has had issues with her thyroid including hypothyroidism and hyperthyroidism. This could be a possible explanation for her weight changes. 6. She will continue trying to wean from her HRT. She can do this by skipping the estradiol every fourth day. On the other days she will continue to take estradiol 0.25 mg and continue with the micronized progesterone 100 mg daily. She was instructed to call if she has vaginal bleeding or problems. She will try to find the lowest effective dose and gradually wean off. The electronic prescription will be sent to [facility] pharmacy in [place]. 7. She was advised to return in one year for her annual well woman exam and as needed.
--- NOTE | 2025-04-25 07:30 | MM ---
Reason for Exam: Screening (asymptomatic). Last mammogram was performed 1 year(s) and 1 month(s) ago. Patient History: Menarche at age 14. First Full-Term at age 32. Late child-bearing (after 31). Postmenopausal. Patient has history of breast feeding. Patient used Estrogen for 2 years. Patient used Progesterone for 2 years. Hormonal Contraceptives for 25 years from age 24 until age 51. Paternal aunt had breast cancer, age 75. Risk Values: Joelle 5 year model risk: 1.9%. NCI Lifetime model risk: 10.2%. Prior Study Comparison: 03/24/2022 Bilateral Screening Mammogram, [facility]. 03/30/2023 Bilateral MG 3D screening mammo w/cad, [facility]. 04/11/2024 Bilateral MG 3D screening mammo w/cad, [facility]. Tissue Density: The breasts are heterogeneously dense, which may obscure small masses. Findings: Analyzed By CAD. Benign-appearing bilateral axillary lymph nodes are redemonstrated. There is no suspicious group of microcalcifications or new suspicious mass in either breast. Overall Assessment: Negative, BI-RAD 1 Management: Screening Mammogram of both breasts in 1 year. . Patient should continue monthly self-breast exams. A clinical breast exam by your physician is recommended on an annual basis. This exam should not preclude additional follow-up of suspicious palpable abnormalities. Note on Joelle scores and lifetime risk: 1. A Joelle score greater than 3% is considered moderate risk. If this is the case, consider specialist referral to assess eligibility for a risk reducing agent. 2. If overall lifetime risk for the development of breast cancer is 20% or higher, the patient may qualify for future screening with alternating mammogram and breast MRI. [facility], , 04/25/2025 7:26 AM. Electronically signed and approved by: Renzo Otoole M.D.
== END ==
LOC: WWCWWP 14:48
PROVIDERS: ATTEND Obstetrics & Gynecology
DX: Z01.419 Encounter for gynecological examination (general) (routine) without abnormal findings (principal); Z12.31 Encounter for screening mammogram for malignant neoplasm of breast; Z78.0 Asymptomatic menopausal state; Z91.018 Allergy to other foods
CPT/HCPCS: 77063; 77067